=== PATIENT | male | born 1970 | race Hispanic/Latino ===

== ENCOUNTER 2021-05-28 11:40 | Emergency (ER) | payer OTHER ==
[~2021-05-28] VITALS: Ht 167.6 cm; Wt 68.0 kg
== END 2021-05-28 12:56 | disposition home or self-care (01) ==
LOC: EDH 11:40 → EEVIPCON 11:40 → EDH 12:56
DX: R32 Unspecified urinary incontinence (principal)

== ENCOUNTER 2021-05-28 17:09 | Emergency (ER) | payer OTHER ==
[~2021-05-28] VITALS: Ht 165.1 cm; Wt 68.0 kg
[2021-05-28 19:09] LABS: APPEARANCE,URINE Clear (CLEAR); BILIRUBIN,URINE Negative (NEGATIVE); COLOR,URINE Yellow (YELLOW); GLUCOSE, URINE (UA) Negative (NEGATIVE); KETONES,URINE Negative (NEGATIVE); LEUKOCYTE ESTERASE ,URINE Negative (NEGATIVE); NITRATE,URINE Negative (NEGATIVE); OCCULT BLOOD,URINE Small (NEGATIVE); PH,URINE 6.5 (5.0-8.0); PROTEIN,URINE Negative (NEGATIVE)
[2021-05-28 19:37] LABS: BACTERIA,URINE Rare /HPF (None Seen); WBC,URINE 0-1 /HPF (0-1)
[2021-05-28 19:38] LABS: SQUAMOUS EPITHELIAL CELL,UR Rare /HPF (0-2)
[2021-05-28 19:41] LABS: MUCUS,URINE Rare LPF (None Seen)
[2021-05-28 20:27] VITALS: BP 134/78
== END 2021-05-28 20:36 ==
LOC: EDH 17:09
DX: R32 Unspecified urinary incontinence (principal)
CPT/HCPCS: 51702; 81001

== ENCOUNTER 2021-05-31 08:41 | Emergency (ER) | payer OTHER ==
[~2021-05-31] VITALS: Ht 167.6 cm; Wt 68.0 kg
[2021-05-31 08:42] VITALS: BP 130/78
[2021-05-31 09:50] VITALS: BP 133/65
== END 2021-05-31 10:49 | disposition home or self-care (01) ==
LOC: EDH 08:41
DX: N40.0 Benign prostatic hyperplasia without lower urinary tract symptoms (principal)
CPT/HCPCS: 99281